=== PATIENT | female | born 1980 ===

== ENCOUNTER → 2021-11-08 | Outpatient (CLI) | payer OTHER | LOC: MC.RAD 09:08 | DX: Z12.31 Encounter for screening mammogram for malignant neoplasm of breast (principal) ==

== ENCOUNTER → 2021-11-12 | Outpatient (CLI) | payer OTHER | LOC: MC.RAD 07:00 | DX: N63.15 Unspecified lump in the right breast, overlapping quadrants (principal); N63.21 Unspecified lump in the left breast, upper outer quadrant ==

== ENCOUNTER → 2021-11-27 | Outpatient (CLI) | payer OTHER | LOC: MC.RAD 07:30 | DX: N63.10 Unspecified lump in the right breast, unspecified quadrant (principal); N63.20 Unspecified lump in the left breast, unspecified quadrant ==